=== PATIENT | female | born 1965 | race Two or more races ===

== ENCOUNTER 2016-02-19 12:40 | Emergency (ER) | payer SELFPAY ==
--- NOTE | 2016-02-19 12:57 | ER Document Report ---
ED Medical Screen (RME) - General Stated Complaint: FELL/BACK, HIP AND LEG PAIN Notes: fell on Tuesday, she was walking on ice and she slipped back and landed on her left hip. pain is a 5/5 in severity, sharp stabbing pain that radiates down her left leg. able to ambulate, denies urinary or stool incontinence, saddle anesthesia. admits to left sided sciatica. at home using heating pad and taking aleve. states that she has had no relief with the aleve. does not have a history of back pain. - Related Data Allergies/Adverse Reactions: No Known Allergies Allergy (Unverified 02/19/16 12:52)
--- NOTE | 2016-02-19 13:54 | ER Document Report ---
ED General - General Chief Complaint: Back Pain Stated Complaint: FELL/BACK, HIP AND LEG PAIN Mode of Arrival: Ambulatory Information source: Patient TRAVEL OUTSIDE OF THE [place] IN LAST 30 DAYS: No - HPI Onset: Last week - Fell on ice striking left hip complains of pain - Related Data Allergies/Adverse Reactions: No Known Allergies Allergy (Unverified 02/19/16 12:52) Past Medical History - General Information source: Patient - Social History Smoking Status: Never Smoker Chew tobacco use (# tins/day): No Frequency of alcohol use: None Drug Abuse: None Family History: None Patient has suicidal ideation: No Patient has homicidal ideation: No Renal/ Medical History: Denies: Hx Peritoneal Dialysis Review of Systems - Review of Systems Constitutional: No symptoms reported EENT: No symptoms reported Cardiovascular: No symptoms reported Respiratory: No symptoms reported Gastrointestinal: No symptoms reported Genitourinary: No symptoms reported Female Genitourinary: No symptoms reported Musculoskeletal: No symptoms reported Skin: No symptoms reported Hematologic/Lymphatic: No symptoms reported Neurological/Psychological: No symptoms reported Physical Exam - Vital signs Vitals: Temp Pulse Resp BP Pulse Ox 98.0 F 86 16 133/77 H 99 02/19/16 12:52 02/19/16 12:52 02/19/16 12:52 02/19/16 12:52 02/19/16 12:52 Interpretation: Normal - General General appearance: Appears well, Alert - HEENT Head: Normocephalic, Atraumatic Eyes: Normal Pupils: PERRL - Respiratory Respiratory status: No respiratory distress Chest status: Nontender Breath sounds: Normal Chest palpation: Normal - Cardiovascular Rhythm: Regular Heart sounds: Normal auscultation Murmur: No - Abdominal Inspection: Normal Distension: No distension Bowel sounds: Normal Tenderness: Nontender Organomegaly: No organomegaly - Back Back: Tender - Pain left lateral of midline lumbar spine no crepitus no step- off appreciated ambulatory with rhythmic and steady gait. No numbness no tingling no loss of bowel or bladder function or saddle anesthesia ambulatory with a rhythmic and steady gait., CVA tenderness. No: Deformity/step-off, Vertebra tenderness, Scars, Scoliosis - Extremities General upper extremity: Normal inspection, Nontender, Normal color, Normal ROM , Normal temperature General lower extremity: Normal inspection, Nontender, Normal color, Normal ROM , Normal temperature, Normal weight bearing. No: Kyra's sign - Neurological Neuro grossly intact: Yes Cognition: Normal Orientation: AAOx4 [place] Coma Scale Eye Opening: Spontaneous Jarett Coma Scale Verbal: Oriented [place] Coma Scale Motor: Obeys Commands [place] Coma Scale Total: 15 Speech: Normal Motor strength normal: LUE, RUE, LLE, RLE Sensory: Normal - Psychological Associated symptoms: Normal affect, Normal mood - Skin Skin Temperature: Warm Skin Moisture: Dry Skin Color: Normal Course - Vital Signs Vital signs: Temp Pulse Resp BP Pulse Ox 98.0 F 86 16 133/77 H 99 02/19/16 12:52 02/19/16 12:52 02/19/16 12:52 02/19/16 12:52 02/19/16 12:52 - Diagnostic Test Radiology reviewed: Reports reviewed Discharge - Discharge Clinical Impression: Sciatica Qualifiers: Laterality: left Qualified Code(s): M54.32 - Sciatica, left side Disposition: HOME, SELF-CARE Instructions: Low Back Pain ([facility]), Muscle Strain ([facility]), Pain Medication Injection ([facility]) Additional Instructions: Sciatica Your symptoms suggest "sciatica." The pain of sciatica typically radiates down the leg. Numbness in the foot or calf may also occur. Sciatica is caused by irritation of the sciatic nerve or its branches. The irritation can be due to a herniated disk in the spine, swelling and inflammation in the muscles surrounding the sciatic nerve, or direct injury of the nerve itself. Most cases of sciatica will resolve with medical treatment. Bed rest is usually recommended initially. Surgery is only necessary when the condition will not improve with rest and antiinflammatory medication. Muscle relaxers are often given if muscle soreness is present. A CAT scan of the back may be performed if a herniated disk is suspected. Re-examination is necessary if you develop increasing numbness, localized weakness in the foot or ankle, or if the pain does not respond to rest. Prescriptions: Methocarbamol [Robaxin 750 mg Tablet] 750 mg PO Q4 #40 tablet Naproxen Sodium [Naproxen Sodium ER] 500 mg PO Q12 PRN #20 tablet.sa PRN Reason: Tramadol HCl [Ultram 50 mg Tablet] 50 mg PO ASDIR PRN #20 tablet PRN Reason:
[2016-02-19 14:06] VITALS: BP 139/82
== END 2016-02-19 14:03 | disposition home or self-care (01) ==
LOC: ER 12:40
DX: M54.32 Sciatica, left side (principal); M54.9 Dorsalgia, unspecified; M25.552 Pain in left hip; M79.606 Pain in leg, unspecified
CPT/HCPCS: 99283